=== PATIENT | female | born 1985 | race African-American/Black ===

== ENCOUNTER 2016-10-11 17:03 | Emergency (ER) | payer SELFPAY ==
[~2016-10-11] VITALS: Ht 152.4 cm; Wt 128.8 kg
--- NOTE | 2016-10-11 17:03 | NUR ---
Patient was BIBA and taken to bed 03 via gurney per EMS.
[2016-10-11 17:12] VITALS: BP 168/76
[2016-10-11] MEDS ORDERED: NACL 0.9% 1,000 ML IV SCH (17:15)
--- NOTE | 2016-10-11 17:15 | NUR ---
Dr. Zamudio evaluating patient at bedside.
[2016-10-11] MEDS ORDERED: NEPHRO-VITE VIT1 TAB PO (17:18)
[2016-10-11] MEDS ORDERED: diphenhydrAMINE 50 MG/ML VIAL IVP ONE ×2 (17:20→18:40)
[2016-10-11] MEDS ORDERED: HYDROmorphone 1 MG/ML AMP IVP ONE ×2 (17:20→18:10)
--- NOTE | 2016-10-11 17:21 | NUR ---
XRAY at bedside.
--- NOTE | 2016-10-11 17:49 | NUR ---
31/F TO ED WITH C/O CHEST PAIN X30 MIN. PT WAS BIBA FROM TRAIN STATION. DENIES SOB. STATES PAIN IS NON RADIATING 02/07. DENIES SOB. DENIES N/V/D. LUNGS CLEAR BILAT. HR EVEN AND REGULAR. AAOX4. VSS. NO SIGNS OF DISTRESS.
--- NOTE | 2016-10-11 18:00 | NUR ---
PT TO RESTROOM VIA WHEEL CHAIR
[2016-10-11] MEDS ORDERED: HYDROmorphone 1 MG/ML AMP ONE (18:14)
--- NOTE | 2016-10-11 18:24 | NUR ---
PT CONTINUES TO STATE PAIN 02/07 AFTER 2MG OF DILAUDID. ERMD AWARE.
[2016-10-11] MEDS ORDERED: HYDROmorphone PFS 2 MG/ML SYR IVP ONE (18:40)
--- NOTE | 2016-10-11 18:56 | NUR ---
PT STILL STATES PAIN /10 AFTER 4MG DILAUDID
[2016-10-11 19:04] VITALS: BP 129/55
--- NOTE | 2016-10-11 19:06 | NUR ---
PT DISCHARGED, IN BED UNTIL RIDE COMES.
== END 2016-10-11 19:06 | disposition home or self-care (01) ==
LOC: MED 17:03
DX: R07.89 Other chest pain (principal); Z76.5 Malingerer [conscious simulation]; D64.9 Anemia, unspecified; I25.2 Old myocardial infarction; Z88.8 Allergy status to other drugs, medicaments and biological substances
CPT/HCPCS: 36415; 71010; 80053; 81001; 81025; 82150; 82553; 83690; 84484; 85025; 85379; 85610; 85730; 93005; 96361; 96374; 96375; 99285; J1170; J1200; Q0092